=== PATIENT | female | born 1950 | race Caucasian/White ===

== ENCOUNTER → 2024-11-11 | Emergency (ER) | payer MEDICARE ==
[~2024-11-11] VITALS: Ht 152.4 cm; Wt 59.0 kg
[~2024-11-11] MED LIST: ALBUHFA IH; AZIT500T2 PO; BENZ-39 PO
[2024-11-11 12:50] LABS: COVID19 (SARS ANTIGEN RAPID) PRESUMPTIVE NEGATIVE (NEGATIVE); INFLUENZA TYPE A Negative For Type A (NEGATIVE); INFLUENZA TYPE B Negative For Type B (NEGATIVE)
--- NOTE | 2024-11-11 12:55 | ERN ---
ED Note History of Present Illness Stated Complaint: COUGH Chief Complaint: Congestion Time Seen by MD: 12:08 Dictation: PATIENT IS A 73-YEAR-OLD FEMALE COMING IN TODAY WITH COMPLAINTS OF FLU-LIKE SYMPTOMS TO INCLUDE MILD SORE THROAT WITH A PAINFUL SWALLOWING, COUGH AND MILD SOB SHE HAS HAD MORE THAN 7-10 DAYS. SHE STATES SHE HAS HAD LOSS OF TASTE AND SMELL HAS NO APPETITE. NO NAUSEA NO VOMITING STATES THE COUGH IS OCCASIONALLY PRODUCTIVE WITH YELLOW PHLEGM. SHE STATES SHE ONLY HAS A HISTORY OF HYPERTENSION HOWEVER STATES SHE HAD A FOUR YEAR HISTORY OF SMOKING MORE THAN 60 YEARS AGO. SHE HAS NOT BEEN TO SEE HER PRIMARY CARE DOCTOR OR A LOCAL CLINIC. HER WHO SEE YOUR WITH HER HAD GONE TO A CLINIC LAST WEEK AND WAS TOLD THAT HE HAD A VIRAL UPPER RESPIRATORY AND WAS GIVEN STEROIDS FOR FIVE DAYS. Allergies: Coded Allergies: Penicillins (Unverified Allergy, Unknown, 11/11/24) Past Medical History Past Medical History: Hypertension Surgical History: History: Not Applicable RN Note Reviewed/Agreed w/PFSH: Yes Review of System Dictation CONSTITUTIONAL: Negative except for HPI fever chills HEAD/FACE: Negative except for HPI EENT: Negative except for HPI sore throat RESPIRATORY: Negative except for HPI cough GASTROINTESTINAL/ABDOMINAL: Negative except for HPI GENITOURINARY: Negative except for HPI MUSCULOSKELETAL: Negative except for HPI INTEGUMENTARY: Negative except for HPI NEUROLOGICAL/PSYCH: Negative except for HPI HEMATOLOGIC/LYMPHATIC: Negative except for HPI All Systems Negative, Except as noted above. 13 point review of systems assessed and all negative except for above. Initial Vital Sign VS Vital Signs Date Time Temp Pulse Resp B/P (MAP) Pulse Ox O2 Delivery O2 Flow Rate FiO2 11/11/24 12:08 98.4 90 18 152/87 99 Room Air Physical Exam Dictation Vital Signs reviewed General Appearance: Alert, oriented x 3, mild acute distress, well developed, nourished. Head and Face: non-traumatic. Eyes: PERRL, pink conjunctivas, eyelid no trauma, anterior chamber with arcus senilis. Ears: Pinnas intact and no signs of trauma or erythema ear canals clear and no discharge TM no erythema Nose: No discharge, no bleeding. Oropharynx: Mouth normal, tongue pink, pharynx clear, erythema, tonsils 2/4 bilaterally erythematous, no abscesses noted, mucous membrane moist uvula midline voice is clear Neck: Supple, non-tender, no thyromegaly, no masses, no JVD, no bruits Breast:Deferred Chest:No tenderness, no crepitus, no paradoxical movement, no retractions Lungs:Clear, well-ventilated, symmetric, no rales, no wheezing, no rhonchi, no stridor, good breath sounds bilaterally intermittent dry cough noted Heart: Regular rate, regular rhythm, no murmur, no gallops Vascular: no peripheral edema, Abdomen: Soft, positive bowel sounds, nondistended, no guarding, nontender, no rebound, no masses no hepatomegaly, no splenomegaly, no Parks's sign, no hernias. Rectal: Deferred Genital: Deferred Neurological: Normal speech, motor function intact, sensory function intact Musculoskeletal: Neck nontender, full range of motion, back nontender, full range of motion, Extremities: nontender, full range of motion Skin: Color pink, dry, no turgor, no rash, no lacerations, no abrasions, no contusions. Lymphatic: Deferred Results (Laboratory/Radiology) Laboratory/Radiology Laboratory Tests Test 11/11/24 12:10 Influenza Type A Antigen Negative For Type A Influenza Type B Antigen Negative For Type B SARS-CoV-2 Antigen (Rapid) PRESUMPTIVE NEGATIVE Group A Streptococcus Rapid positive (NEGATIVE) *A Labs Reviewed?: Yes ED Course ED Course Orders Procedure Category Date Status Time Influenza Type A & B, LAB 11/11/24 Complete Rapid 12:07 Covid19 (Sars Antigen LAB 11/11/24 Complete Rapid) 12:07 Rapid (Group A Strep) LAB 11/11/24 Complete 12:07 Chest 1vw RAD 11/11/24 Resulted 12:53 Acetaminophen 500mg PHA 11/11/24 Complete Tab (Tylenol 500mg T 13:00 Dexamethasone 4mg/Ml PHA 11/11/24 Complete 1ml Vial (Dexametha 13:00 Ceftriaxone 1g Vial PHA 11/11/24 Complete (Rocephine 1g Inj) 13:30 Current Medications Medications (Trade) Dose Ordered Sig/Marissa Route PRN Reason Start Time Stop Time Status Last Admin Dose Admin Acetaminophen (TYLenol 500MG TAB) 1,000 mg ONCE ONCE PO 11/11/24 13:00 11/11/24 13:01 DC 11/11/24 15:23 Ceftriaxone Sodium (ROCEphine 1G INJ) 1 gm ONCE ONCE IM 11/11/24 13:30 11/11/24 13:31 DC 11/11/24 15:22 Dexamethasone Sodium Phosphate (dexaMETHasone 4MG/ML 1ML VIAL) 8 mg ONCE ONCE IM 11/11/24 13:00 11/11/24 13:01 DC 11/11/24 15:23 Vital Signs Date Time Temp Pulse Resp B/P (MAP) Pulse Ox O2 Delivery O2 Flow Rate FiO2 11/11/24 12:08 98.4 90 18 152/87 99 Room Air INDICATION: SOB. HISTORY OF PACEMAKER TECHNIQUE: CHEST 1VW COMPARISON: 10/29/2024 FINDINGS AND IMPRESSION: Prominent bilateral interstitial markings which may represent bronchitis or vascular congestion in the proper clinical setting. Cardiac silhouette is within normal limits. She will be discharged home with all Mild degenerative changes of the spine. The visualized upper abdomen appears unremarkable. 1540/patient given Rocephin 1g for acute streptococcal tonsillitis. She will be discharged home with azithromycin 500 mg q.day for seven days., she will be given albuterol inhaler., she will be given Tessalon Perles for cough and told to see her doctor at the urgent care Medical Decision Making MDM Medical decision-making based on swabs for flu COVID and strep and chest x-ray. Patient has a bacterial bronchitis with cough on chest x-ray Positive Streptococcus a Given Rocephin IM with Decadron and pain meds Discharged home with azithromycin 500 q.day for seven days Albuterol inhaler q.4 hours while awake for the next three days. Tessalon Perles for cough. DX & DISP Disposition: Discharge Departure Impression: Primary Impression: Acute bacterial bronchitis Additional Impressions: Cough, Acute streptococcal tonsillitis Condition: Stable Scripts Albuterol Sulfate (Ventolin Hfa/Proventil Hfa/Proair Hfa) 90 Mcg Puff 2 PUFF IH Q4H for WHEEZING, #1 INHALER 0 Refills Prov: DUARTE RAZA NP 11/11/24 Benzonatate (Tessalon Perles) 100 Mg Cap 200 MG PO TID for cough, #60 CAP 0 Refills Prov: DUARTE RAZA NP 11/11/24 Azithromycin (Zithromax Tri-Jose) 500 Mg Tablet 500 MG PO DAILY for 7 Days, #7 TAB Prov: DUARTE RAZA NP 11/11/24 Additional Instructions: Follow-up with primary care provider in 1 to 2 days. Take medications as d irected here in the emergency room. Okay to continue home medications unless otherwise discussed during your visit in the emergency room today. Return to your nearest emergency room if symptoms worsen or if there is no improvement. Call 911 if you need immediate assistance. Take Tylenol or Motrin [id number] as needed and if no contraindications are present. Increase oral hydration. A wound culture or urine culture was ordered here in the emergency room department please follow-up with primary care provider and advise them to get repeat ports from our facility. If you had any Heladio wrap/splints that were applied here, please do not remove them until you see your primary care or specialty. Take azithromycin as directed until gone. Use albuterol inhaler every4 hours while awake. Take Tessalon Perles 200 mg every8 hours as needed for cough. , increase your fluid intake. And follow up with your doctor at the urgent care clinic in the next 2-3 days. Referrals: SELF,REFERRAL (PCP) I have reviewed the case, and I agree with, Diagnosis and Plan DUARTE RAZA NP Nov 11, 2024 12:55
[2024-11-11 12:56] LABS: RAPID GROUP A STREP positive (NEGATIVE)
--- NOTE | 2024-11-11 14:40 | HMCIMG ---
INDICATION: COUGH X1 WEEK TECHNIQUE: CHEST 1VW COMPARISON: None FINDINGS AND IMPRESSION: Prominent bilateral interstitial markings which may represent bronchitis or vascular congestion in the proper clinical setting. Cardiac silhouette is within normal limits. Mild degenerative changes of the spine. The visualized upper abdomen appears unremarkable.
--- NOTE | 2024-11-11 15:20 | NUR ---
MOVED PT INTO INTERNAL WAITING AREA FOR MED PASS AND DC INSTRUCTIONS
[2024-11-11] MEDS: cefTRIAXone 1G VIAL IM ONE (15:22)
[2024-11-11] MEDS: dexaMETHasone SOD PHOSPHATE 4 MG/ML 1ML VIAL IM ONE (15:23)
[2024-11-11] MEDS: acetaMINOPHEN 500 MG TABLET PO ONE (15:23)
[2024-11-11 16:27] VITALS: BP 145/84; PULSE 85; RESP 18; TEMP 98.8; O2SAT 97
== END ==
LOC: EDH 12:05
DX: J20.8 Acute bronchitis due to other specified organisms (principal); B96.89 Other specified bacterial agents as the cause of diseases classified elsewhere; R05.9 Cough, unspecified; J03.00 Acute streptococcal tonsillitis, unspecified; I10 Essential (primary) hypertension; Z88.0 Allergy status to penicillin; Z95.0 Presence of cardiac pacemaker; Z20.822 Contact with and (suspected) exposure to COVID-19
CPT/HCPCS: 99284; 71045; 87426; 87880; 87804 ×2; 96372 ×2; J1100; J0696